=== PATIENT | female | born 1930 | race Caucasian/White ===

== ENCOUNTER → 2016-10-29 | Outpatient (CLI) | payer OTHER ==
[~2016-10-29] VITALS: Ht 152.4 cm; Wt 54.4 kg
[~2016-10-29] MED LIST: ADULT LOW DOSE81 MG PO; ARTIFICIAL TEA1 EACH OPHTHALMIC; ASPIRIN325 PO; CALTRATE PLUS1 EACH PO; COLACE 100 MG100 MG PO; COUMADIN 2 MG TA2 M1; COUMADIN 5 MG TA5 M1; COZAAR 50 MG TA50 M2 PO; FISH OIL 1,0001 EAC5 PO; GAVISCON TABLE1 EACH PO; GAVISCON500 MG PO; HYDROCODON-ACE1 EAC8; LIPITOR 10 MG10 M1 PO; LOVENOX; MUCINEX TA600 MG/TA2 PO; MUSINEX PO; NORCO 5-325 TA1 EACH; PRINZIDE 20-121 EACH PO; STOOL SOFTENER50 MG PO; TEARS PURE DROP15 ML OPHTHALMIC; TIROSINT75 MCG PO; TRAMADOL 50 MG50 MG PO; TUMS PO; VITAMIN D-32000 UNIT PO; VITAMIN E400 UNIT PO; VITAMINC500 PO
--- NOTE | ~2016-10-29 | HPC ---
[facility] [place] [address] PAIN MANAGEMENT CONSULTATION Name: CHANNINGALEKSANDERDARRICK J Room #: REG [facility] BrijeshAbilio#: [id number] Admission: 10/29/16 Attend Phys: Ricarda Villa MD Discharge: Date of : 32 Report #: [id number] THIS REPORT FOR: //name// CC: Shine Villa DATE OF SERVICE: 10/29/2016 FOLLOWUP COMPLAINT: Return of pain radiating down the back and leg about 1-1/2 weeks ago. Pain is a 7 at this juncture. Had epidural steroid injections in the past and had good result. It is beginning to radiate down into the left leg. There is a dull aching sensation. There is no change in bowel or bladder function. Standing too long worsens the pain. Walking can be problematic. Pain is alleviated with lying down as well as with sitting. "I have had no problems with the injections in the past. I would like to have another shot." PHYSICAL EXAMINATION: Blood pressure 139/69, pulse 70, respiratory rate 16, room air O2 saturation 99%. The patient has pain and discomfort which is radiating down into the left leg with numbness, tingling and weakness. IMPRESSION: History of moderately severe L4-L5 and L3-L4 spinal stenosis. RECOMMENDATIONS: We discussed treatment options with the patient. Risks and benefits of another epidural steroid injection were discussed. Possible complications were reviewed. The patient and her agreed to proceed. PROCEDURE NOTE: The patient was placed in the prone position. Fluoroscopy was used to identify the L4/L5 interspace. This area had been sterilely prepped with Betadine and infiltrated with 0.25% bupivacaine. Total of 80 mg Depo-Medrol, 40 mg triamcinolone and 2 mL of 0.25% bupivacaine was injected. The patient tolerated the procedure well. A fluoro time of 7 seconds was used. The patient has not fallen in the last 3 months. Her pain decreased from 7 to 0.5 at the time of discharge. She will follow up in the future as needed. We would like to thank you for letting us participate in her care. We hope she continues to improve. <ELECTRONICALLY SIGNED> By: Ricarda Villa MD 10/31/16 0812 1303 1550 Ricarda Villa MD /nt
[2016-10-29 10:45] VITALS: BP 139/69
== END ==
LOC: PAIN 07:06
DX: M48.06 Spinal stenosis, lumbar region (principal); I10 Essential (primary) hypertension; Z87.891 Personal history of nicotine dependence

== ENCOUNTER → 2016-11-19 | Outpatient (CLI) | payer OTHER ==
[~2016-11-19] VITALS: Ht 152.4 cm; Wt 53.5 kg
--- NOTE | ~2016-11-19 | HPC ---
[facility] [place] [address] [place] [address] PAIN MANAGEMENT CONSULTATION Name: CHANNINGSAIMAMaryDARRICK J Room #: REG [facility] Camejo#: [id number] Admission: 11/19/16 Attend Phys: Ricarda Villa MD Discharge: Date of : 32 Report #: [id number] THIS REPORT FOR: //name// CC: MOHAMUD Villa DATE OF SERVICE: 11/19/2016 FOLLOWUP COMPLAINT: The pain improved, but now it has started again. FOLLOWUP HISTORY: The patient is a very pleasant 86-year-old female who has been followed in the pain clinic because of lumbar radiculopathy. She also has severe spinal stenosis at L4-L5 and L3-L4. She underwent an epidural steroid injection a few weeks ago. She noticed that her pain improved significantly. She has noted that the pain has returned again and it is still problematic radiating down into her left leg. She had no problems after the last injection. She does continue to have some difficulty walking because of the pain as well as some discomfort when sitting. She rates her pain as 2-3 with certain activities. Notes that lifting items is problematic, lying down helps, sitting can be helpful as well. PHYSICAL EXAMINATION: Blood pressure is 123/79, pulse 65, respiratory rate 12, room air saturation is 97%. Height 5 feet, weight 53 kilograms, BMI 29. The patient has not fallen since we saw her last. She does note some numbness and tingling down in the left leg with weakness. IMPRESSION: History of moderately severe spinal stenosis at L4-L5 and L3-L4. The patient has pain in the L4-L5 distribution on the left down into the left leg. RECOMMENDATIONS: We discussed the treatment options with the patient. Risks and benefits of the procedure were again reviewed. They can include but are not limited to infection, increased muscle soreness, bleeding, worsening of pain condition. PROCEDURE NOTE: The patient was placed in the prone position. Fluoroscopy was used to identify the L4-L5 interspace. This area had been sterilely prepped with Betadine and infiltrated with 0.25% bupivacaine. Total of 80 mg Depo-Medrol, 40 mg triamcinolone and 2 mL of 0.25% bupivacaine was injected. The patient tolerated the procedure well. There were no complications. Total fluoroscopy time was 35 seconds. She was taken to the recovery room where she remained for an appropriate amount of time. [place] [address] PAIN MANAGEMENT CONSULTATION Name: DARRICK JEFFERY Room #: REG CL JakubAbilioJocelynnAbilio#: [id number] Admission: 11/19/16 Attend Phys: Ricarda Villa MD Discharge: Date of : 32 Report #: [id number] needed. We would like to thank you for letting us participate in her care. We hope she continues to improve. <ELECTRONICALLY SIGNED> By: Ricarda Villa MD 11/21/16 0853 1343 0108 Ricadra Villa MD /aldair
[2016-11-19 11:09] VITALS: BP 123/79
== END | disposition home or self-care (01) ==
LOC: PAIN 09:51
DX: M54.16 Radiculopathy, lumbar region (principal); M48.06 Spinal stenosis, lumbar region

== ENCOUNTER → 2017-01-22 | Outpatient (CLI) | payer OTHER ==
[~2017-01-22] VITALS: Ht 152.4 cm; Wt 49.0 kg
[~2017-01-22] MED LIST changes: +ASPIR-LOW81 MG PO; +FLONASE 0.05%50 MCG NASAL
--- NOTE | ~2017-01-22 | S ---
[facility] [place] [address] [place] [address] SURGICAL PATH RPT PROCEDURE Name: AGNES JEFFERY Room #: REG [facility] Coley.#: [id number] Admission: 01/22/17 Date of : 32 Discharge: Report #: [id number] Path Case #: [id number] PATHOLOGY REPORT COLLECTION DATE: 01/22/2017 RECEIVED DATE: 01/22/2017 SUBMITTING PHYS: Dr. August Irving OTHER PHYS: Dr. Shine Salinas SPECIMEN(S) RECEIVED: A.Bx of small bowel B.Bx of gastritis * * * * * * * * * * * * FINAL DIAGNOSIS: A. Small bowel mucosa, rule out celiac disease, endoscopic biopsy: - Fundic-type metaplasia with mild active inflammation, compatible with mild peptic duodenitis. - Negative for villous blunting. B. Gastric mucosa, gastritis, endoscopic biopsy: - Mild reactive gastropathy. - Negative for intestinal metaplasia or atrophy. - Negative for Helicobacter pylori. COMMENT: Helicobacter pylori immunohistochemical stain performed on block B1 - negative. (IUV:pit; 01/23/2017) PATHOLOGIST: Lay Chauhan M.D. REPORT ELECTRONICALLY SIGNED BY: Lay Chauhan M.D. DATE/TIME: 01/23/2017 13:53 * * * * * * * * * * * * GROSS PATHOLOGY: A. Received in formalin labeled "Agnes Kellogg, biopsy of small bowel to R/O celiac," are four segments of hernandez soft tissue measuring 1.2 x 1.0 x 0.2 cm in aggregate dimensions and ranging from 0.3 to 0.6 cm in maximum dimension. The specimen is submitted entirely in cassette A1. B. Received in formalin labeled "Agnesanne marie Kellogg, biopsy of gastritis," are five segments of hernandez soft tissue measuring 1.2 x 1.0 x 0.2 cm in aggregate dimensions and ranging from 0.3 to 1.1 cm in maximum dimension. The specimen is submitted entirely in cassette B1. (CAA; 01/22/2017) [place] [address] [place] [address] SURGICAL PATH RPT PROCEDURE Name: AGNES JEFFERY Room #: REG [facility] M..#: [id number] Admission: 01/22/17 Date of : 32 Discharge: Report #: [id number] Path Case #: [id number] CLINICAL HISTORY: Dysphagia, abdominal pain A: R/O celiac Re: Abdominal pain INITIAL CPT CODE(S): A; 70070 B; 89243, 85434 Professional services performed by [facility] at [facility] [address] [place] [address] Technical services performed by [facility] at [address] [place] [address], [address] [address]. [facility] [address] [address] PHONE: [phone] DIRECTOR: Lloyd Yanes M.D. * * * END OF REPORT * * *
== END | disposition home or self-care (01) ==
LOC: GI 09:02
DX: R13.10 Dysphagia, unspecified (principal); R10.13 Epigastric pain; R63.4 Abnormal weight loss; K44.9 Diaphragmatic hernia without obstruction or gangrene
CPT/HCPCS: 62110; 62900

== ENCOUNTER → 2017-02-25 | Outpatient (CLI) | payer OTHER | LOC: CAT 12:00 | DX: R10.9 Unspecified abdominal pain (principal); R10.2 Pelvic and perineal pain ==

== ENCOUNTER → 2017-08-07 | Outpatient (CLI) | payer OTHER ==
[~2017-08-07] VITALS: Ht 152.4 cm; Wt 52.2 kg
[~2017-08-07] MED LIST changes: +NORCO 5-325 TA1 EACH PO
--- NOTE | ~2017-08-07 | HPC ---
[facility] [place] [address] PAIN MANAGEMENT CONSULTATION Name: DARRICK JEFFERY Muna Room #: REG [facility] Camejo#: [id number] Admission: 08/07/17 Attend Phys: Ricarda Villa MD Discharge: Date of : 32 Report #: [id number] THIS REPORT FOR: //name// CC: Shine Villa DATE OF SERVICE: 08/07/2017 FOLLOWUP COMPLAINT: "I have been doing pretty good, but I have noted some pain down in my left leg and in the back of leg." FOLLOWUP HISTORY: The patient is an 86-year-old female who has been seen in the pain clinic because of lumbar radiculopathy. She has undergone epidural steroid injections in the L4-L5 distribution. She has gleaned benefits from that. She returns today indicating that she is noticing more pain in the lower portion of her back with pain radiating down into the buttocks and left leg with numbness and weakness. The patient notes that the pain is significantly more problematic when she stands for a period of time. She denies any new trauma. She feels that another epidural steroid injection would be beneficial given that she has done well with the previous treatments. ALLERGIES: PENICILLIN AND SULFA. CURRENT MEDICATIONS: Flonase two sprays p.r.n., aspirin 81 mg, Cozaar 50 mg, Mucinex 600 mg, calcium 500 mg, artificial tears two drops daily, vitamin D3, Lipitor 10 mg, fish oil 1000 mg, vitamin E, ascorbic acid 500 mg, and levothyroxine 75 mcg. PHYSICAL EXAMINATION: VITAL SIGNS: Blood pressure 136/60, pulse 65, respiratory rate 16, room air saturation 97%. Height 5 feet 0 inch, weight 115 pounds, BMI is 22. GENERAL: Well-developed white female, appears her stated age. Orientated and alert. Affect appropriate. HEENT: Head atraumatic. Eyes nonicteric. Hearing is slightly decreased. BACK: Appears normal, reasonable normal alignment, no step-offs. No significant kyphosis or scoliosis evident. Major muscle groups of lower extremity judged to be 4+/5. The patient has pain radiating down the posterior portion of her left leg involving the hamstring and down into the calf. Notes some discomfort on the right side as well, but not nearly as problematic as on the left. IMPRESSION: 1. History of spinal stenosis with exacerbation of pain radiating down to the L5-S1 distribution today. The patient has received good progress after the last epidural steroid injections with no complications. [address] [address] PAIN MANAGEMENT CONSULTATION Name: DARRICK JEFFERY Room #: REG [facility]#: [id number] Admission: 08/07/17 Attend Phys: Ricarda Villa MD Discharge: Date of : 32 Report #: [id number] 2. Hypertension. 3. Hypothyroidism. 4. Hypercholesterolemia. RECOMMENDATIONS: We discussed treatment options with the patient. We explained the possible complications and expectations of an epidural steroid injection. Given that she has been receiving reasonably good pain relief after the previous injection, I think that an epidural steroid injection at this juncture could be beneficial. Risk and benefits of the procedure were discussed. A model was again used to illustrate the pathology involved with spinal stenosis and the reasoning for worsening of pain while standing and with other activities. At this juncture, she would like to proceed with an epidural steroid injection. They include but are not limited to infection, increased muscle soreness, headache, bleeding, nerve damage, worsening of pain and spinal headache. PROCEDURE NOTE: The patient was taken to the procedure area. Assistance was provided to get on the examination table. The patient was placed in the prone position. Her back was sterilely prepped with a Betadine solution. This was done on three occasions. The area was then infiltrated with 0.25% bupivacaine. A fluoroscopy imaging technique using lateral and AP imaging was provided. After appropriate placement using this technique, a 17-gauge Tuohy with loss of resistance technique was used to gain access to the epidural space. There was no CSF, heme or paresthesia. Total of 80 mg of Depo-Medrol, 40 mg of triamcinolone and 2 mL of 0.25% bupivacaine was injected. The patient tolerated the procedure well. There were no complications. A Band-Aid was placed in the site. There was no appreciable bleeding. The patient was then taken to the recovery room where she remained for an appropriate amount of time. She will follow up in the future as needed. We would like to thank you for letting us participate in her care. We hope she continues to improve. <ELECTRONICALLY SIGNED> By: Ricarda Villa MD 08/21/17 1332 1349 0058 Ricarda Villa MD /SHANNON
[2017-08-07 09:58] VITALS: BP 136/60
== END | disposition home or self-care (01) ==
LOC: PAIN 06:48
DX: M48.061 Spinal stenosis, lumbar region without neurogenic claudication (principal); M54.16 Radiculopathy, lumbar region; I10 Essential (primary) hypertension; E03.9 Hypothyroidism, unspecified; E78.00 Pure hypercholesterolemia, unspecified; Z98.890 Other specified postprocedural states; Z79.82 Long term (current) use of aspirin; Z79.899 Other long term (current) drug therapy; Z87.891 Personal history of nicotine dependence; Z88.0 Allergy status to penicillin; Z88.2 Allergy status to sulfonamides

== ENCOUNTER 2021-01-23 14:31 | Emergency (ER) | payer OTHER ==
[~2021-01-23] VITALS: Ht 154.9 cm; Wt 52.2 kg
[2021-01-23 14:46] VITALS: BP 131/78
== END 2021-01-23 16:48 | disposition home or self-care (01) ==
LOC: ER 14:31
DX: S00.83XA Contusion of other part of head, initial encounter (principal); I10 Essential (primary) hypertension; E78.00 Pure hypercholesterolemia, unspecified; E03.9 Hypothyroidism, unspecified; Z90.49 Acquired absence of other specified parts of digestive tract; Z96.643 Presence of artificial hip joint, bilateral; Z79.899 Other long term (current) drug therapy; Z79.82 Long term (current) use of aspirin; Z88.0 Allergy status to penicillin; Z88.2 Allergy status to sulfonamides; W01.0XXA Fall on same level from slipping, tripping and stumbling without subsequent striking against object, initial encounter; Y93.89 Activity, other specified; Y92.511 Restaurant or cafe as the place of occurrence of the external cause; Y99.8 Other external cause status